=== PATIENT | male | born 1975 ===

== ENCOUNTER 2024-06-23 14:35 | Emergency (ER) | payer SELFPAY ==
[~2024-06-23] VITALS: Ht 165.1 cm; Wt 86.2 kg
[2024-06-23 15:07] VITALS: BP 174/103; PULSE 60; RESP 18; TEMP 97.9; O2SAT 99
[2024-06-23] MEDS ORDERED: MYLANTA ONE (15:43)
[2024-06-23] MEDS ORDERED: LIDOCAINE HCL VISCOUS ONE (15:43)
[2024-06-23] MEDS: LIDOCAINE HCL VISCOUS MM STA (15:48)
[2024-06-23] MEDS: MYLANTA PO STA (15:48)
[2024-06-23 15:53] LABS: BILIRUBIN,URINE NEGATIVE (NEGATIVE); LEUKOCYTE ESTERASE ,URINE NEGATIVE (NEGATIVE); NITRATE,URINE NEGATIVE (NEGATIVE); PH,URINE 7.5 (4.5-8.0); UROBILINOGEN,URINE 0.2 E.U./dL (0.2)
[2024-06-23 15:54] LABS: APPEARANCE,URINE CLEAR; UA COLOR YELLOW
[2024-06-23 15:57] LABS: BASOPHIL % 0.2 % (0.2-1.2); EOSINOPHIL % 0.1 % (0.0-5.0); HEMATOCRIT(ML) 48.8 % (37.0-53.0); HEMOGLOBIN 16.5 g/dL (13.9-16.3); LYMPHOCYTES # 1.42 10^3/uL1 (1.0-4.8); LYMPHOCYTES % 10.6 % (24.0-44.0); MEAN CORP HGB 30.3 pg (26-34); MEAN CORP HGB CONCENTRATION 33.8 g/dL (33-36.5); MEAN CORP VOLUME 89.5 fL (78-100); MONOCYTES # 0.4 10^3/uL (0.3-0.8); MONOCYTES % 3.1 % (5.0-12.0); NEUTROPHIL # 11.5 10^3/uL (1.8-7.7); NEUTROPHILS % 85.7 % (41.0-85.0); PLATELET COUNT 341 10^3/uL (150-400); RED BLOOD CELL 5.45 10^6/uL (4.50-5.90); WHITE BLOOD CELL 13.4 10^3/uL (4.5-11.0)
[2024-06-23 16:00] LABS: +ADD MANUAL DIFF(NO CHRG) NO
[2024-06-23 16:10] LABS: UAMPH METHAMP(SCRN) NEGATIVE (co1000ng/mL); UR MDMA (ECSTASY) SCRN NEGATIVE (c/o300ng/mL); UR METHADONE SCRN NEGATIVE (c/o300ng/mL); UR OPIATE SCRN NEGATIVE (c/o300ng/mL); UR PHENCYCLIDINE (PCP) SCRN NEGATIVE (c/o 25ng/mL); UR TETRAHYDROCANNABINOL SCRN NEGATIVE (c/o 50ng/mL)
[2024-06-23 16:17] LABS: ALBUMIN(ML) 4.2 g/dL (3.4-5.0); ALBUMIN/GLOBULIN RATIO 1.05; ANION GAP 12.4; BUN/CREATININE RATIO 13.97 (10.0-20.0); C-REACTIVE PROTEIN 0.22 mg/dL (0.00-5.00); CALCIUM 9.2 mg/dL (8.4-10.5); CARBON DIOXIDE 28.3 mmol/L (20.0-32); CREATININE SERUM 0.93 mg/dL (0.59-1.40); EST GFR, NON-AA 86.4 (>/=60); POTASSIUM 3.7 mmol/L (3.6-5.2)
[2024-06-23 17:22] VITALS: BP_SYST 175; PULSE 61; RESP 18; TEMP 97.9; O2SAT 99
[2024-06-23] MEDS ORDERED: ZOFRAN ONE (17:23)
[2024-06-23] MEDS: ZOFRAN IV STA (17:29)
[2024-06-23] MEDS ORDERED: CATAPRES ONE (18:07)
[2024-06-23] MEDS: CATAPRES PO STA (18:10)
[2024-06-23 18:20] VITALS: BP 165/107; PULSE 65; RESP 18; TEMP 97.9; O2SAT 99
== END 2024-06-23 18:24 | disposition home or self-care (01) ==
LOC: ER 14:35
DX: N20.1 Calculus of ureter (principal); F14.10 Cocaine abuse, uncomplicated; I10 Essential (primary) hypertension; Z82.49 Family history of ischemic heart disease and other diseases of the circulatory system
CPT/HCPCS: 96374; 99285; 71045; 74177; 81003; 80053; 85025; 80353; 36415; 84484; 83605; 80307; 83690; 86140; J3490; J2405; Q9965